=== PATIENT | female | born 2000 | race African-American/Black ===

== ENCOUNTER 2019-01-29 16:01 | Emergency (ER) | payer BC, MEDICAID ==
[~2019-01-29] VITALS: Ht 167.6 cm; Wt 102.5 kg
[~2019-01-29 16:01] MED LIST: ABIL5 PO; METF-414 PO
[2019-01-29] MEDS ORDERED: ACETAMINOPHEN 500MG TABLET PO ONE (17:30)
[2019-01-29] MEDS ORDERED: LIDOCAINE HCL 4% (40MG/ML) SOLN 50ML TOP ONE (17:30)
[2019-01-29] MEDS ORDERED: IBUPROFEN 800MG TABLET PO ONE (17:30)
[2019-01-29] MEDS ORDERED: BACITRACIN ZINC OINT UDPKT TOP NR (17:45)
[2019-01-29] MEDS ORDERED: BACITRACIN 15GM TUBE TOP ONE (17:45)
[2019-01-29] MEDS ORDERED: LIDOCAINE HCL 4% CREAM 76GM TUBE TP SCH (18:00)
[2019-01-29] MEDS ORDERED: ACETAMINOPHEN WITH CODEINE 300/30MG TABLET PO ONE (18:45)
[2019-01-29 18:46] VITALS: BP 146/80
== END 2019-01-29 19:09 | disposition home or self-care (01) ==
LOC: ER 16:01
DX: S80.811A Abrasion, right lower leg, initial encounter (principal); L03.115 Cellulitis of right lower limb; E11.9 Type 2 diabetes mellitus without complications; F12.10 Cannabis abuse, uncomplicated; Y08.89XA Assault by other specified means, initial encounter; Y93.89 Activity, other specified; Y92.89 Other specified places as the place of occurrence of the external cause; Y99.8 Other external cause status
CPT/HCPCS: 99284; Z7610